=== PATIENT | female | born 1955 | race Hispanic/Latino ===

== ENCOUNTER 2019-09-25 15:24 | Emergency (ER) | payer SELFPAY ==
[~2019-09-25 15:24] MED LIST: Iopamidol 370 76% 150 ML VIAL FS ONE; Sodium Chloride 0.9% 100 ML BAG ONE
[2019-09-25] MEDS ORDERED: Nitroglycerin 0.4 MG TAB 1 EACH ONE ×2 (15:26→17:49)
[2019-09-25 15:42] LABS: INR-International Normal Ratio 0.8; PTT 24.9 SEC (22.9-36.1); Prothrombin Time 11.4 SEC (12.0-14.7)
[2019-09-25] MEDS ORDERED: Aspirin Chewable 81 MG TAB ONE (15:43)
--- NOTE | 2019-09-25 15:54 | RAD ---
EXAM: Chest one view: HISTORY: Chest pain COMPARISON: 09/14/2012 FINDINGS: Heart size: Within normal limits. Lungs: Clear of acute process. No evidence for pneumonia, pleural effusion, acute edema, or pneumothorax, or other significant acute process. IMPRESSION: No significant acute intrathoracic disease.
[2019-09-25 15:58] LABS: Band 4 % (5-11); Hemoglobin 15.1 g/dL (12.0-16.0); Lymphocytes 35 % (21-51); MDiff Complete? YES; Mean Corpuscular HGB CONC 31.4 g/dL (32.0-36.0); Mean Corpuscular Hemoglobin 27.5 pg (27.0-31.0); Mean Corpuscular Volume 87.4 fL (78.0-98.0); Mean Platelet Volume 7.5 fL (7.4-10.4); Monocytes 3 % (0-10); Neutrophil 58 % (42-75); Platelet Count 259 thou/uL (130-400); Platelet Morphology Comment Appears Adequate; RBC Distribution Width 12.2 % (11.5-14.5); Red Blood Cell (RBC) Count 5.52 mill/uL (4.20-5.40); White Blood Cell (WBC) Count 8.7 thou/uL (4.8-10.8)
[2019-09-25 16:04] LABS: ALT (SGPT) 45 U/L (8-55); AST (SGOT) 27 U/L (5-34); Albumin 4.5 g/dL (3.4-4.8); Alkaline Phosphatase 125 U/L (40-110); Anion Gap 16 mmol/L (10-20); BUN (Urea Nitrogen) 11 mg/dL (9.8-20.1); Bilirubin, Total 0.5 mg/dL (0.2-1.2); Calc. Creatinine Clearance 0 mL/min (70-130); Calcium 11.4 mg/dL (7.8-10.44); Carbon Dioxide 22 mmol/L (23-31); Chloride 105 mmol/L (98-107); Estimated GFR-MDRD 75; Globulin 3.7 g/dL (2.4-3.5); Glucose 158 mg/dL (80-115); Potassium 3.6 mmol/L (3.5-5.1); Protein, Total 8.2 g/dL (6.0-8.3); Sodium 139 mmol/L (136-145)
[2019-09-25 16:08] LABS: CKMB 1.7 ng/mL (0-6.6); Troponin I Less than 0.010 ng/mL (< 0.028)
[2019-09-25] MEDS ORDERED: Nitroglycerin 2% Ointment 1 INCH/1 GM Packet ONE (16:19)
--- NOTE | 2019-09-25 17:26 | CT ---
EXAM: CTA of the chest HISTORY: Chest pain and near syncope COMPARISON: None TECHNIQUE: Multiple contiguous axial images were obtained a CTA of the chest with contrast per pulmon everette embolism protocol. 3-D oblique MIP reformats and direct coronal reformats were performed. FINDINGS: HEART: Normal in size without focal cardiac abnormality. PULMONARY ARTERIES: Normal in caliber without filling defects to suggest pulmonary emboli. MEDIASTINUM: No hilar or mediastinal lymphadenopathy. LUNGS: No focal infiltrates or masses. PLEURAL SPACE: No pleural effusion or pneumothorax. CHEST WALL SOFT TISSUES: 1.2 cm hypodensity in the right thyroid lobe VISUALIZED OSSEOUS STRUCTURES: Unremarkable VISUALIZED SUBDIAPHRAGMATIC STRUCTURES: Unremarkable. Status post cholecystectomy. IMPRESSION: 1. No evidence of pulmonary thromboembolism 2. Thyroid hypodensity can be further evaluated with a nonemergent outpatient thyroid ultrasound.
== END 2019-09-25 17:47 | disposition short-term general hospital (02) ==
LOC: MADERS 15:24
DX: I24.9 Acute ischemic heart disease, unspecified (principal); I16.9 Hypertensive crisis, unspecified; I10 Essential (primary) hypertension; E83.52 Hypercalcemia; E11.65 Type 2 diabetes mellitus with hyperglycemia; R55 Syncope and collapse; F41.9 Anxiety disorder, unspecified; F32.9 Major depressive disorder, single episode, unspecified; Z79.899 Other long term (current) drug therapy; Z79.84 Long term (current) use of oral hypoglycemic drugs
CPT/HCPCS: 36416; 71045; 71275; 80053; 82553; 83735; 83880; 84484; 85025; 85610; 85730; 93005; J3490

== ENCOUNTER 2021-02-02 09:42 | Outpatient (CLI) | payer SELFPAY ==
[2021-02-02 10:23] LABS: ALT (SGPT) 54 U/L (8-55); AST (SGOT) 37 U/L (5-34); Albumin 4.1 g/dL (3.4-4.8); Alkaline Phosphatase 126 U/L (40-110); Anion Gap 13 mmol/L (10-20); BUN (Urea Nitrogen) 12 mg/dL (9.8-20.1); Bilirubin, Total 0.5 mg/dL (0.2-1.2); Calc. Creatinine Clearance 0 mL/min (70-130); Calcium 9.8 mg/dL (7.8-10.44); Carbon Dioxide 28 mmol/L (23-31); Chloride 104 mmol/L (98-107); Globulin 3.3 g/dL (2.4-3.5); Glucose 182 mg/dL (80-115); Potassium 4.3 mmol/L (3.5-5.1); Protein, Total 7.4 g/dL (5.8-8.1); Sodium 141 mmol/L (136-145)
== END 2021-02-02 09:43 | disposition home or self-care (01) ==
LOC: MADLAB 09:42
PROVIDERS: ATTEND Family Medicine
DX: R74.01 Elevation of levels of liver transaminase levels (principal)
CPT/HCPCS: 36415; 80053

== ENCOUNTER 2021-06-02 13:18 | Emergency (ER) | payer SELFPAY ==
[2021-06-02] MEDS ORDERED: Lidocaine 1% w/Epinephrine 1:100K 20 ML VIAL ONE (13:51)
[2021-06-02] MEDS ORDERED: Bacitracin 1 PK ONE (14:32)
== END 2021-06-02 14:40 | disposition home or self-care (01) ==
LOC: MADERS 13:18
DX: S81.011A Laceration without foreign body, right knee, initial encounter (principal); E11.9 Type 2 diabetes mellitus without complications; I10 Essential (primary) hypertension; Z87.19 Personal history of other diseases of the digestive system; Z79.84 Long term (current) use of oral hypoglycemic drugs; Z79.899 Other long term (current) drug therapy; W18.30XA Fall on same level, unspecified, initial encounter
CPT/HCPCS: 12002

== ENCOUNTER 2023-11-27 18:40 | Emergency (ER) | payer SELFPAY ==
[2023-11-27] MEDS ORDERED: Acetaminophen 500 MG TAB ONE (19:03)
[2023-11-27] MEDS ORDERED: Ibuprofen 800 MG TAB ONE (19:32)
[2023-11-27 19:46] LABS: SARS-CoV-2 NAA Rapid Test Not Detected (NotDetected)
== END 2023-11-27 21:35 | disposition home or self-care (01) ==
LOC: MADERS 18:40
DX: J10.1 Influenza due to other identified influenza virus with other respiratory manifestations (principal); E11.9 Type 2 diabetes mellitus without complications; I10 Essential (primary) hypertension; Z79.84 Long term (current) use of oral hypoglycemic drugs
CPT/HCPCS: 71045; 87804; U0002

== ENCOUNTER 2024-07-19 19:05 | Emergency (ER) | payer SELFPAY ==
[2024-07-19 19:46] LABS: #Basophils 0.1 thou/uL (0.0-0.2); #Eosinphils 0.2 thou/uL (0.0-0.7); #Lymphocytes 2.5 thou/uL (1.20-3.40); #Monocytes 0.5 thou/uL (0.11-0.59); #Neutrophils 5.9 thou/uL (1.40-6.50); %Basophils 0.8 % (0.0-1.0); %Eosinophils 2.1 % (0.0-10.0); %Lymphocytes 26.7 % (21.0-51.0); %Monocytes 5.5 % (0.0-10.0); %Neutrophils 64.8 % (42.0-75.0); Hematocrit 44.9 % (36.0-47.0); Hemoglobin 13.7 g/dL (12.0-16.0); Mean Corpuscular HGB CONC 30.5 g/dL (32.0-36.0); Mean Corpuscular Hemoglobin 26.8 pg (27.0-31.0); Mean Corpuscular Volume 87.9 fl (78.0-98.0); Mean Platelet Volume 6.5 fL (7.4-10.4); Platelet Count 245 10x3/uL (130-400); RBC Distribution Width 12.8 % (11.5-14.5); Red Blood Cell (RBC) Count 5.11 mill/uL (4.20-5.40); White Blood Cell (WBC) Count 9.2 10x3/uL (4.8-10.8)
[2024-07-19 20:00] LABS: ALT (SGPT) 31 U/L (8-55); AST (SGOT) 20 U/L (5-34); Albumin 3.9 g/dL (3.4-4.8); Alkaline Phosphatase 182 U/L (40-110); Anion Gap 18 mmol/L (10-20); BUN (Urea Nitrogen) 11 mg/dL (9.8-20.1); Bilirubin, Total 0.2 mg/dL (0.2-1.2); Calc. Creatinine Clearance 0 mL/min (70-130); Calcium 11.3 mg/dL (7.8-10.44); Carbon Dioxide 22 mmol/L (23-31); Chloride 104 mmol/L (98-107); Estimated GFR 79; Globulin 3.9 g/dL (2.4-3.5); Glucose 234 mg/dL (80-115); Potassium 4.1 mmol/L (3.5-5.1); Protein, Total 7.8 g/dL (5.8-8.1); Sodium 140 mmol/L (136-145)
[2024-07-19 20:03] LABS: Troponin I Less than 0.010 ng/mL (< 0.028)
== END 2024-07-19 22:45 | disposition home or self-care (01) ==
LOC: MADERS 19:05
DX: F41.9 Anxiety disorder, unspecified (principal); F41.0 Panic disorder [episodic paroxysmal anxiety]; E11.9 Type 2 diabetes mellitus without complications; I10 Essential (primary) hypertension; Z79.84 Long term (current) use of oral hypoglycemic drugs
CPT/HCPCS: 71045; 80053; 84484; 85025; 93005; 96360; 96361